=== PATIENT | male | born 1960 | race Caucasian/White ===

== ENCOUNTER 2017-05-19 11:37 | Emergency (ER) | payer BC, OTHER ==
[2017-05-19 11:46] VITALS: BP 135/90
[2017-05-19] MEDS ORDERED: Lidocaine 2% PF * 5 ML VIAL INJ ONE (12:01)
[2017-05-19] MEDS ORDERED: Lidocaine 2% W/EPI 1:100,000* 20 ML MDV INJ ONE (12:01)
--- NOTE | 2017-05-19 13:08 | UC ---
Laceration HPI - HPI Summary HPI Summary: 20 MINUTES AGO, CUTTING SIDING WITH RAZOR WHILE REMODELING. CUT LEFT HAND AND LEFT INDEX FINGER ON GONZALEZ SURFACE. 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 ON ASPIRIN. - History Of Current Complaint Chief Complaint: UCLaceration Stated Complaint: LACERATION TO HAND Time Seen by Provider: 05/19/17 11:40 Hx Obtained From: Patient Laceration Location: Hand - LEFT Mechanism Of Injury: Sharp Trauma Onset/Duration: Sudden Onset, Lasting Minutes, Still Present Severity: Moderate Aggravating Factors: Nothing Related History: Dominant Hand Right - Allergies/Home Medications Allergies/Adverse Reactions: Allergies Allergy/AdvReac Type Severity Reaction Status Date / Time No Known Allergies Allergy Verified 07/18/15 21:02 Home Medications: Home Medications Blood Pressure Medication 1 tab PO DAILY 05/19/17 [History Confirmed 05/19/17] Hydrochlorothiazide [Microzide-] 05/19/17 [History] Metoprolol 1 tab PO DAILY 05/19/17 [History Confirmed 05/19/17] PMH/Surg Hx/FS Hx/Imm Hx Previously Healthy: Yes - Surgical History Surgical History: Yes Surgery Procedure, Year, and Place: hernia surgery. Right leg VEIN REMOVAL - Family History Known Family History: Negative: Blood Disorder - Social History Occupation: Employed Full-time Lives: With Family Alcohol Use: None Substance Use Type: None Smoking Status (MU): Never Smoked Tobacco - Immunization History Most Recent Tetanus Shot: 2 YRS AGO Review of Systems Constitutional: Negative Skin: Other - LACERATION LEFT PALM AND LEFT FOURTH FINGER Eyes: Negative ENT: Negative Respiratory: Negative Cardiovascular: Negative Gastrointestinal: Negative Genitourinary: Negative Motor: Negative Neurovascular: Negative Musculoskeletal: Negative Neurological: Negative Psychological: Negative Is Patient Immunocompromised?: No All Other Systems Reviewed And Are Negative: Yes Physical Exam Triage Information Reviewed: Yes Appearance: Well-Appearing, No Pain Distress Vital Signs: Initial Vital Signs Temp 97.4 F 05/19/17 11:41 Pulse 64 05/19/17 11:41 Resp 18 05/19/17 11:41 BP 135/90 05/19/17 11:41 Pulse Ox 100 05/19/17 11:41 Vital Signs Reviewed: Yes Eye Exam: Normal ENT Exam: Normal ENT: Positive: Normal ENT inspection, TMs normal Dental Exam: Normal Neck exam: Normal Neck: Positive: Supple, Nontender, No Lymphadenopathy Respiratory Exam: Normal Respiratory: Positive: Chest non-tender, Lungs clear, Normal breath sounds, No respiratory distress, No accessory muscle use Cardiovascular Exam: Normal Cardiovascular: Positive: RRR, No Murmur, Pulses Normal, Brisk Capillary Refill Abdominal Exam: Normal Musculoskeletal Exam: Normal Musculoskeletal: Positive: Strength Intact, ROM Intact, No Edema Neurological Exam: Normal Psychological Exam: Normal Psychological: Positive: Normal Response To Family Skin: Positive: Other - 9 CM LACERATION LEFT HAND 4TH FINGER Laceration Repair - Laceration Repair 1 Description: Linear Laceration Size After Repair: Length (cm) - 9, Width (mm) - 8, Depth (mm) - 8 Modified For Repair: No Type Injection: Local Anesthesia Used: 2.0% Lido Additive Used (in ml): Epi Cleansing Completed Via Routine Prep: Yes Irrigation With Pressure Irrigation Device: Yes Closure Material: Sutures - 9 X 4-0 PROLENE Suture Of: Skin, SQ Suture Type: Prolene Laceration Course/Dx - Differential Dx - Laceration/Wound Differental Diagnoses: Joint Space Violation, Joint Infection, Laceration, Tendon Laceration Provider Diagnoses: LACERATION OF LEFT HAND AND FOURTH FINGER WITH REPAIR Discharge - Discharge Plan Condition: Stable Disposition: HOME Prescriptions: Cephalexin CAP* [Keflex CAP*] 500 mg PO TID #30 cap Patient Education Materials: Care For Your Stitches (ED), Laceration (ED) Referrals: Faustino Rice MD [Primary Care Provider] - Josephine Jane MD [Medical Doctor] - Additional Instructions: RETURN IN 10 TO 12 DAYS TO HAVE SUTURES REMOVED. Images Hands: 1 - LACERATION HERE
== END 2017-05-19 12:55 | disposition home or self-care (01) ==
LOC: UCEAST 11:37
DX: S61.412A Laceration without foreign body of left hand, initial encounter (principal); S61.215A Laceration without foreign body of left ring finger without damage to nail, initial encounter; W45.8XXA Other foreign body or object entering through skin, initial encounter; Y93.H3 Activity, building and construction; Y92.9 Unspecified place or not applicable
CPT/HCPCS: 12004; 99212; G0463

== ENCOUNTER 2017-05-29 15:50 | Emergency (ER) | payer OTHER ==
[2017-05-29 16:03] VITALS: BP 131/84
--- NOTE | 2017-05-29 16:08 | UC ---
HPI Wound/Suture Re-check - HPI Summary HPI Summary: 57 YEAR OLD MALE PRESENTS FOR SUTURE REMOVAL OF LEFT HAND. THE WOUND LOOKS C/D/ I. - History Of Current Complaint Chief Complaint: UCSkin Stated Complaint: SUTURE REMOVAL Time Seen by Provider: 05/29/17 16:07 Hx Obtained From: Patient Onset/Duration: Lasting Days Severity: Mild Pain Scale Used: 0-10 Numeric - 2 - Allergies/Home Medications Allergies/Adverse Reactions: Allergies Allergy/AdvReac Type Severity Reaction Status Date / Time No Known Allergies Allergy Verified 05/29/17 16:03 PMH/Surg Hx/FS Hx/Imm Hx Previously Healthy: Yes - Surgical History Surgical History: Yes Surgery Procedure, Year, and Place: hernia surgery. Right leg VEIN REMOVAL - Family History Known Family History: Negative: Blood Disorder - Social History Alcohol Use: None Substance Use Type: None Smoking Status (MU): Never Smoked Tobacco - Immunization History Most Recent Tetanus Shot: 2 YRS AGO Review of Systems Constitutional: Negative Skin: Other - LEFT HAND WOUND C/D/I Eyes: Negative ENT: Negative Respiratory: Negative Cardiovascular: Negative Gastrointestinal: Negative Genitourinary: Negative Motor: Negative Neurovascular: Negative Musculoskeletal: Negative Neurological: Negative Psychological: Negative All Other Systems Reviewed And Are Negative: Yes Physical Exam Triage Information Reviewed: Yes Vital Signs: Initial Vital Signs Temp 37.0 C 05/29/17 15:59 Pulse 82 05/29/17 15:59 Resp 20 05/29/17 15:59 BP 131/84 05/29/17 15:59 Pulse Ox 100 05/29/17 15:59 Vital Signs Reviewed: Yes Eye Exam: Normal ENT Exam: Normal Dental Exam: Normal Neck exam: Normal Neck: Positive: 1 Respiratory Exam: Normal Cardiovascular Exam: Normal Abdominal Exam: Normal Musculoskeletal Exam: Normal Neurological Exam: Normal Psychological Exam: Normal Skin: Positive: Other - LEFT HAND WOUND C/D/I Course/Dx - Differential Dx - Laceration/Wound Provider Diagnoses: SUTURE REMOVAL LEFT HAND Discharge - Discharge Plan Condition: Stable Disposition: HOME Patient Education Materials: Stitches Removal (ED), Care For Your Stitches (ED) Referrals: Faustino Rice MD [Primary Care Provider] -
== END 2017-05-29 16:30 | disposition home or self-care (01) ==
LOC: UCEAST 15:50
DX: S61.402D Unspecified open wound of left hand, subsequent encounter (principal); X58.XXXD Exposure to other specified factors, subsequent encounter

== ENCOUNTER 2019-01-14 09:32 | Emergency (ER) | payer OTHER ==
[2019-01-14 09:45] VITALS: BP 130/93
[2019-01-14] MEDS ORDERED: Lidocaine 1%* 5 ML VIAL INJ ONE (10:43)
--- NOTE | 2019-01-14 10:43 | UC ---
Laceration HPI - HPI Summary HPI Summary: WHILE AT WORK TODAY PATIENT PICKED UP A GLASS PICTURE FRAME WHEN IT BROKE IN HIS HANDS. SUSTAINED A LACERATION TO THE DORSAL RIGHT THIRD FINGER OVERLYING THE MCP JOINT. UP-TO-DATE TETANUS. - History Of Current Complaint Chief Complaint: UCLaceration Stated Complaint: RT HAND INJURY Time Seen by Provider: 01/14/19 10:32 Hx Obtained From: Patient Laceration Location: Finger - RIGHT 3RD Mechanism Of Injury: Sharp Trauma Onset/Duration: Lasting Hours, Still Present Severity: Moderate Pain Intensity: 0 Pain Scale Used: 0-10 Numeric Aggravating Factors: Movement Related History: Dominant Hand Right - Allergies/Home Medications Allergies/Adverse Reactions: Allergies Allergy/AdvReac Type Severity Reaction Status Date / Time No Known Allergies Allergy Verified 01/14/19 09:46 Home Medications: Home Medications Aspirin 81 mg CHEW TAB* 1 tab PO DAILY 01/14/19 [History Confirmed 01/14/19] PMH/Surg Hx/FS Hx/Imm Hx - Additional Past Medical History Additional PMH: H/O DVT Cardiovascular History: Hypertension - Surgical History Surgical History: Yes Surgery Procedure, Year, and Place: hernia surgery. Right leg VEIN REMOVAL - Family History Known Family History: Negative: Blood Disorder - Social History Alcohol Use: None Substance Use Type: None Smoking Status (MU): Never Smoked Tobacco - Immunization History Most Recent Tetanus Shot: 2 YRS AGO Review of Systems All Other Systems Reviewed And Are Negative: Yes Constitutional: Positive: Negative Skin: Positive: Other - LACERATION RIGHT 3RD FINGER Respiratory: Positive: Negative Cardiovascular: Positive: Negative Gastrointestinal: Positive: Negative Musculoskeletal: Positive: Negative Physical Exam Triage Information Reviewed: Yes Appearance: Well-Appearing, No Pain Distress, Well-Nourished Vital Signs: Initial Vital Signs Temp 98 F 01/14/19 09:43 Pulse 66 01/14/19 09:43 Resp 16 01/14/19 09:43 BP 130/93 01/14/19 09:43 Pulse Ox 100 01/14/19 09:43 Vital Signs Reviewed: Yes Eyes: Positive: Conjunctiva Clear ENT: Positive: Hearing grossly normal Neck: Positive: Supple Respiratory: Positive: No respiratory distress, No accessory muscle use Cardiovascular: Positive: Pulses Normal Abdomen Description: Positive: Soft Musculoskeletal: Positive: ROM Intact, No Edema, Other: - TTP RIGHT 3RD PROXIMAL PHALANX ADJACENT TO LACERATION SITE. Neurological: Positive: Alert Psychological: Positive: Age Appropriate Behavior Skin: Positive: Other - 2.4CM LINEAR LACERATION DORSAL SIDE OF RIGHT 3RD FINGER OVERLYING MCP JOINT Laceration Repair - Laceration Repair 1 Description: Linear Laceration Size After Repair: Length (cm) - 2.4CM, Width (mm) - 0MM, Depth (mm) - 3MM Modified For Repair: No Type Injection: Local Anesthesia Used: 1.0% Lido Irrigation With Pressure Irrigation Device: Yes Closure Material: Sutures - 6 SIMPLE INTERRUPTED Closure Method: Single Layer Suture Of: Skin Suture Type: Prolene - 5-0 Diagnostics - Radiology RIGHT 3RD FINGER XRAY Radiology Interpretation Completed By: Radiologist Summary of Radiographic Findings: There is no radiopaque foreign body. NO ACUTE OSSEOUS INJURY Laceration Course/Dx - Diagnosis Provider Diagnosis: Laceration of right middle finger Discharge - Sign-Out/Discharge Documenting (check all that apply): Patient Departure All imaging exams completed and their final reports reviewed: Yes - Discharge Plan Condition: Stable Disposition: HOME Patient Education Materials: Laceration (ED) Referrals: Faustino Rice MD [Primary Care Provider] - If Needed Additional Instructions: X-RAY TODAY NEGATIVE FOR ANY BONY INJURY OR RETAINED FOREIGN BODY. KEEP DRESSINGS IN PLACE AND DRY FOR THE FIRST 24 HRS. THEN YOU MAY REMOVE THE DRESSING AND GENTLY CLEANSE WITH SOAP AND WATER. PAT DRY AND RE-BANDAGE. TRY TO AVOID EXTREME BENDING OF YOUR FINGER TO REDUCE THE RISK OF YOUR LACERATION OPENING UP AGAIN. THE WOUND EDGES WILL BE WEAK FOR SEVERAL WEEKS. APPLY THIN LAYER ANTIBIOTIC OINTMENT UNDER BANDAGE FOR FIRST 3-4 DAYS ONLY. AVOID NEOMYCIN CONTAINING PRODUCTS. CHANGE BANDAGE DAILY AND NEEDED IF IT BECOMES SOILED OR WET. SEEK FOLLOW-UP IF YOU DEVELOP SPREADING REDNESS OF THE SKIN, PURULENT DRAINAGE, FEVER, INCREASED PAIN OR ANY OTHER CONCERNING SYMPTOMS. RETURN TO HAVE YOUR 6 SUTURES REMOVED IN 10 DAYS - Billing Disposition and Condition Condition: STABLE Disposition: Home
== END 2019-01-14 11:53 | disposition home or self-care (01) ==
LOC: UCEAST 09:32
DX: S61.212A Laceration without foreign body of right middle finger without damage to nail, initial encounter (principal); W25.XXXA Contact with sharp glass, initial encounter; Y92.9 Unspecified place or not applicable; Y99.0 Civilian activity done for income or pay; I10 Essential (primary) hypertension; Z86.718 Personal history of other venous thrombosis and embolism; Z79.82 Long term (current) use of aspirin
CPT/HCPCS: 12001; 73140; 99212; G0463

== ENCOUNTER 2019-01-17 18:25 | Emergency (ER) | payer SELFPAY ==
[2019-01-17 18:49] VITALS: BP 142/101
[2019-01-17] MEDS ORDERED: Cephalexin CAP* 500 MG PO ONE (19:39)
--- NOTE | 2019-01-17 19:43 | UC ---
Hand/Wrist HPI - HPI Summary HPI Summary: stitches place in right hand 3 days ago---has been working with his splint off area is swollen no flatulence, tenderness, drainage, erythema-- - History Of Current Complaint Chief Complaint: UCSkin Stated Complaint: HAS STITCHES SWELLING Time Seen by Provider: 01/17/19 19:30 Hx Obtained From: Patient ?: No Onset/Duration: Sudden Onset Pain Intensity: 0 Pain Scale Used: 0-10 Numeric Aggravating Factor(s): Movement Alleviating Factor(s): Nothing Associated Signs And Symptoms: Positive: Swelling Related History: Dominant Hand Right - Allergies/Home Medications Allergies/Adverse Reactions: Allergies Allergy/AdvReac Type Severity Reaction Status Date / Time No Known Allergies Allergy Verified 01/17/19 18:49 PMH/Surg Hx/FS Hx/Imm Hx Previously Healthy: No Cardiovascular History: Hypertension - Surgical History Surgical History: Yes Surgery Procedure, Year, and Place: hernia surgery. Right leg VEIN REMOVAL - Family History Known Family History: Negative: Blood Disorder - Social History Occupation: Employed Full-time Lives: With Family Alcohol Use: None Substance Use Type: None Smoking Status (MU): Never Smoked Tobacco - Immunization History Most Recent Tetanus Shot: 2 YRS AGO Review of Systems All Other Systems Reviewed And Are Negative: Yes Constitutional: Positive: Negative Skin: Positive: Other - swelling dorsum of right hand around sutures base of 3rd fingers Eyes: Positive: Negative ENT: Positive: Negative Respiratory: Positive: Negative Cardiovascular: Positive: Negative Gastrointestinal: Positive: Negative Genitourinary: Positive: Negative Motor: Positive: Negative Neurovascular: Positive: Negative Musculoskeletal: Positive: Negative Neurological: Positive: Negative Psychological: Positive: Negative Is Patient Immunocompromised?: Yes Physical Exam Triage Information Reviewed: Yes Appearance: Well-Appearing, No Pain Distress, Well-Nourished Vital Signs: Initial Vital Signs Temp 98.1 F 01/17/19 18:46 Pulse 73 01/17/19 18:46 Resp 16 01/17/19 18:46 BP 142/101 01/17/19 18:46 Pulse Ox 97 01/17/19 18:46 Vital Signs Reviewed: Yes Eye Exam: Normal Eyes: Positive: Conjunctiva Clear ENT Exam: Normal ENT: Positive: Normal ENT inspection, Hearing grossly normal. Negative: Trismus , Muffled voice, Hoarse voice Neck exam: Normal Neck: Positive: Supple, Nontender, No Lymphadenopathy Respiratory Exam: Normal Respiratory: Positive: Chest non-tender, Lungs clear, Normal breath sounds, No respiratory distress, No accessory muscle use Cardiovascular Exam: Normal Cardiovascular: Positive: RRR, No Murmur, Pulses Normal, Brisk Capillary Refill Musculoskeletal Exam: Normal Musculoskeletal: Positive: Strength Intact, ROM Intact, Edema @ - right hand- dosrum Neurological Exam: Normal Neurological: Positive: Alert, Muscle Tone Normal Psychological Exam: Normal Skin: Positive: Other - healing sutures right hand Hand/Wrist Course/Dx - Course Course Of Treatment: will rx keflex as patient has been doing labor work with splint and dressing off sutured area and some swelling---no specific evidence of infection---will resplint and add 5 days of keflex---follow with pcp or return - Differential Dx/Diagnosis Provider Diagnosis: Suture check, Localized swelling on right hand Discharge - Sign-Out/Discharge Documenting (check all that apply): Patient Departure All imaging exams completed and their final reports reviewed: No Studies - Discharge Plan Condition: Stable Disposition: HOME Prescriptions: Cephalexin CAP* [Keflex CAP*] 500 mg PO QID 5 Days #20 cap Patient Education Materials: Care For Your Stitches (ED), Laceration (ED), Hypertension (ED) Referrals: Non Staff,Doctor [Primary Care Provider] - Additional Instructions: 1. use splint for 2 more days 2. mild soap and water wash 2 times a day 3. keep covered if apt to get bumped or dirty 4. warm compress 4 times a day - Billing Disposition and Condition Condition: STABLE Disposition: Home
== END 2019-01-17 20:00 | disposition home or self-care (01) ==
LOC: UCEAST 18:25
DX: S61.212D Laceration without foreign body of right middle finger without damage to nail, subsequent encounter (principal); M79.89 Other specified soft tissue disorders; W25.XXXD Contact with sharp glass, subsequent encounter; I10 Essential (primary) hypertension
CPT/HCPCS: 99213; A9270-GY; G0463